=== PATIENT | male | born 1965 | race Caucasian/White ===

== ENCOUNTER → 2017-02-09 | Day surgery (SDC) | payer MEDICARE, OTHER ==
[~2017-02-09] MED LIST: BENZ1TAB5 PO; FENTANYL PF 100 MCG/2 ML VIAL. IV PRN; HYDR-2762 PO; HYDROMORPHONE 2 MG/ML VIAL. IV PRN; IV RINGERS,LACTATED 1000ML 1,000 ML IV SCH; LIDOCAINE 1% 1 ML SYRINGE. ID PRN; LIDOCAINE 2% PF Vial for OR 5 ML VIAL. ONE; MORPHINE SULFATE 2 MG/ML DISP.SYRIN. IV PRN; OMEP40CA5 PO; ONDANSETRON PF 4 MG/2 ML VIAL. IV PRN; PROCHLORPERAZINE 10 MG/2 ML VIAL. IV PRN; PROPOFOL 40 ML IV ONE; QUET300T5 PO; SIMV20TA3 PO
--- NOTE | 2017-02-09 08:16 | PDOC1 ---
HISTORY & PHYSICAL H&P Sonu Huynh [id number] 1965 01/20/2017 01:30 PM 11/08 [employer] [facility] PATIENTS [facility] [address] [place] [address] Ph. [phone] Patient: Sonu Huynh Date of : 1965 Date: 01/20/2017 1:30 PM Visit Type: Consult This 51 year old male presents for Screening colonoscopy. History of Present Illness: 1. Screening colonoscopy No prior screening. Denies risk factors. Pertinent negatives include abdominal pain, change in bowel habits, change in stool caliber, constipation, decreased appetite, diarrhea, melena, nausea, rectal bleeding, vomiting, weight gain and weight loss. Additional information: No family history of colon cancer , No family history of Crohn's/colitis and No NSAID/ASA use. INTAKE COMMENTS: Intake Comments: Nurse Note: the pt is here today for a screening colonoscopy, the pt has not had one done prior. PROBLEM LIST: Problem Description Onset Date Chronic Notes GERD 01/20/2017 Y PAST MEDICAL/SURGICAL HISTORY (Detailed) Disease/disorder Onset Date Management Date Comments Calf reconstruction Chronic Back pain dyslipidemia GERD Medications (Active): Started Medication Directions Instruction Stopped [place] 7.5 mg-325 mg tablet take 1 tablet by oral route every 6 hours as needed for pain omeprazole 40 mg capsule,delayed release take 1 capsule by oral route every day before a meal Seroquel 400 mg tablet take 1 tablet by oral route 2 times every day simvastatin 40 mg tablet take 1 tablet by oral route every day in the evening Allergies: Ingredient Reaction Medication Name Comment PENICILLINS REVIEW OF SYSTEMS System Neg/Pos Details Constitutional Negative Chills, fever, malaise, weight gain and weight loss. ENMT Negative Sore throat. Eyes Negative Double vision. Respiratory Negative Dyspnea and wheezing. Cardio Negative Chest pain and irregular heartbeat/palpitations. GI Positive See HPI. GI Negative Abdominal pain, change in bowel habits, change in stool caliber, constipation, decreased appetite, diarrhea, melena, nausea, see HPI, rectal bleeding and vomiting. Negative Dysuria and hematuria. Endocrine Negative Cold intolerance and heat intolerance. Psych Negative Anxiety. Integumentary Negative Hives and rash. MS Negative Joint pain. Wiliam/Lymph Negative Easy bleeding and easy bruising. Allergic/Immuno Negative Food allergies. PHYSICAL EXAM: Exam Findings Details Constitutional Normal Well developed. Eyes Normal Conjunctiva - Right: Normal, Left: Normal. Sclera - Right: Normal, Left: Normal. Nasopharynx Normal Lips/teeth/gums - Normal. Neck Exam Normal Inspection - Normal. Thyroid gland - Normal. Respiratory Normal Inspection - Normal. Auscultation - Normal. Cardiovascular Normal Regular rate and rhythm. No murmurs, gallops, or rubs. Vascular Normal Pulses - Carotids: Normal, Femoral: Normal, Dorsalis pedis: Normal. Abdomen Normal Inspection - Normal. Anterior palpation - No guarding. No abdominal tenderness. No hepatic enlargement. No splenic enlargement. No hernia. No ascites. Skin Normal Inspection - Normal. Extremity Normal No edema. Psychiatric * Oriented to time, place, person and situation. Psychiatric Normal Appropriate mood and effect. Assessment/Plan # Detail Type Description 1. Assessment Encounter for screening colonoscopy (Z12.11). Patient Plan schedule colonoscopy at Plan Orders Further diagnostic evaluations ordered today include(s) Colonoscopy to be performed today. He is to schedule a follow-up visit with Jairon Lima MD upon completion of work-up Electronically signed by: Jairon Lima MD 01/20/2017 01:19 PM Document generated by: Jairon Lima 01/20/2017 01:19 PM Ashlee Cr MD, Family Practice; Akhil Ring MD Internal Medicine; Mimi Fuller MD, Internal Medicine; Zonia Lima MD Internal Medicine; Jairon Lima MD, Gastroenterology; Marc Larkin MD, Rheumatology, S. Yovnany Morris, Physical Medicine/Rehab Noel Donnelly APRN ------ 02/09/17 Patient seen and examined. No change in H&P. JAIRON LIMA MD Feb 09, 2017 08:16
--- NOTE | 2017-02-09 08:58 | PDOC4 ---
GI OP Report - Dr. Oliver Date/Time DATE: 02/09/17 TIME: 08:57 Attending Physician Jairon Oliver MD Referring Physician Indications Screening for colorectal malignant neoplasm Pre-Op See the Anesthesia note for documentation of the administered medications Procedures Colonoscopy Findings - Stool in the rectum, in the sigmoid colon, at the splenic flexure, at the hepatic flexure and in the cecum. - No specimens collected. Plan - Discharge patient to home. - Resume regular diet. - Continue present medications. - Repeat colonoscopy in 10 years for surveillance. - Return to my office as needed. JAIRON OLIVER MD Feb 09, 2017 08:58
[2017-02-09 09:29] VITALS: BP 100/67
== END | disposition home or self-care (01) ==
LOC: ENDOS 06:53
PROVIDERS: ATTEND Internal Medicine Gastroenterology
DX: Z12.11 Encounter for screening for malignant neoplasm of colon (principal); E78.00 Pure hypercholesterolemia, unspecified; K21.9 Gastro-esophageal reflux disease without esophagitis; M19.90 Unspecified osteoarthritis, unspecified site; F17.200 Nicotine dependence, unspecified, uncomplicated; F20.9 Schizophrenia, unspecified; Z72.89 Other problems related to lifestyle; Z72.0 Tobacco use
CPT/HCPCS: G0121; J2704